=== PATIENT | female | born 1995 | race Caucasian/White ===

== ENCOUNTER 2021-02-13 08:07 | Inpatient (IN) | payer BC ==
[~2021-02-13] VITALS: Ht 165.1 cm; Wt 107.5 kg
[2021-02-13 08:44] LABS: URINE HCG NEGATIVE (NEG)
[2021-02-13 08:45] LABS: CLARITY,URINE SLIGHTLY CLOUDY (Clear); COLOR,URINE ORANGE (Yellow)
[2021-02-13 09:08] LABS: UA COLLECTION TYPE NON-SPECIFIED
[2021-02-13 09:09] LABS: WBC,URINE 0-4 /HPF (0-4)
[2021-02-13 09:11] LABS: BACTERIA,URINE 1+ /HPF (Neg); CAL OXALATE CRYSTALS 4+ /HPF (NEGATIVE); HYALINE CASTS 0-3 /LPF (NEGATIVE); MUCUS STRANDS MODERATE /LPF (Neg); RBC,URINE NONE SEEN /HPF (0-2); SQUAMOUS EPITHELIAL CELL,UR FEW /LPF (FEW)
[2021-02-13 09:36] LABS: BASOPHILS % (AUTO) 0.3 % (0-1); EOSINOPHILS % (AUTO) 0 % (0-6); LYMPHOCYTES # (AUTO) 0.4 X10'3 (1.1-4.8); MEAN PLATELET VOLUME 8.5 FL (7.4-10.4); MONOCYTES # (AUTO) 0.8 X10'3 (0-0.9); MONOCYTES % (AUTO) 5.7 % (2-12); NEUTROPHILS # (AUTO) 12.4 X10'3 (1.8-7.7); PLATELET COUNT 364 X10'3 (140-440); WHITE BLOOD COUNT 13.7 X10'3 (4.5-11.0)
[2021-02-13 09:58] LABS: ALANINE AMINOTRANSFERASE 484 U/L (12-78); ALBUMIN 3.7 G/DL (3.4-5.0); ALBUMIN/GLOBULIN RATIO 0.8 (1.1-1.5); ALKALINE PHOSPHATASE 224 IU/L (46-116); ANION GAP 13 (8-16); ASPARTATE AMINO TRANSFERASE 175 U/L (10-37); BILIRUBIN,TOTAL 2.3 MG/DL (0.1-1.0); BLOOD UREA NITROGEN 7 MG/DL (7-18); BUN/CREATININE RATIO 6.6 (6.6-38.0); CHLORIDE 104 MMOL/L (99-107); CREATININE 1.06 MG/DL (0.40-0.90); GLUCOSE 164 MG/DL (70-104); POTASSIUM 4.4 MMOL/L (3.5-5.1); SODIUM 140 MMOL/L (135-145); TOTAL CARBON DIOXIDE 23.4 MMOL/L (24-32); TOTAL PROTEIN 8.1 G/DL (6.4-8.2); eGFR 63 ML/MIN
[2021-02-13] MEDS ORDERED: ketorolac trometh. 30mg/ml inj. IV ONE (10:00)
[2021-02-13] MEDS ORDERED: ondansetron/PF 4mg/2ml inj IV ONE (10:00)
[2021-02-13] MEDS ORDERED: normal saline 1000ML IV soln IVB ONE (10:00)
[2021-02-13 10:04] LABS: HEMATOCRIT 38.4 % (35.0-45.0); HEMOGLOBIN 12.7 g/dl (12.0-16.0); MEAN CORPUSCULAR VOLUME 77.9 FL (78-98); RED BLOOD COUNT 4.94 X10'6 (4.20-5.60)
[2021-02-13 10:05] LABS: MEAN CORPUSCULAR HEMOGLOBIN 25.6 PG (27.0-31.0); MEAN CORPUSCULAR HGB CONC 32.9 g/dL (33.0-36.5); RED CELL DISTRIBUTION WIDTH 15.5 % (11.5-14.5)
[2021-02-13] MEDS: morphine 4 MG/ML inj SYRINge IV PRN ×3 (10:13→22:05)
[2021-02-13] MEDS ORDERED: NO HOME MEDS (13:42)
[2021-02-13] MEDS ORDERED: potassium Cl 20 mEq SR tablet PO PRN ×2 (13:55)
[2021-02-13] MEDS ORDERED: potassium Cl 40MEQ/1/2NS 520ml 520 ML IV PRN ×2 (13:55)
[2021-02-13] MEDS ORDERED: magnesium 2GM in 50ml NS 50 ML IV PRN (13:55)
[2021-02-13] MEDS ORDERED: magnesium Cl slow-release 64mg tablet PO PRN (13:55)
[2021-02-13] MEDS ORDERED: acetaminophen 325mg tablet PO PRN (13:55)
[2021-02-13] MEDS ORDERED: magnesium 4gm in 100ml NS 100 ML IV PRN (13:55)
[2021-02-13 14:00] LABS: LIPASE > 30000 U/L (73-393)
[2021-02-13] MEDS: normal saline 1000ml 1,000 ML IV SCH ×2 (14:55→23:55)
[2021-02-13] MEDS: ondansetron/PF 4mg/2ml inj IV PRN (16:37)
[2021-02-13] MEDS: K and/or MAG REPLACEMENT MC SCH (20:00)
--- NOTE | 2021-02-13 21:50 | NUR ---
Patient ambulatory to bathroom with steady gait.
--- NOTE | 2021-02-13 23:43 | NUR ---
Assumed care of patient- report recieved from Tiffany VERGARA. Patient resting in stretcher at this time. Even and unlabored respirations- appears to be asleep.
--- NOTE | 2021-02-14 02:00 | NUR ---
Patient was offered a hospital bed but she refused at the time stating since it does not fit in the room she would rather stay on the stretcher in the room with a door than the hospital bed in the room with curtains.
[2021-02-14 04:31] LABS: BASOPHILS % (AUTO) 0.4 % (0-1); EOSINOPHILS % (AUTO) 0.1 % (0-6); HEMATOCRIT 34.6 % (35.0-45.0); HEMOGLOBIN 10.8 g/dl (12.0-16.0); LYMPHOCYTES # (AUTO) 0.9 X10'3 (1.1-4.8); LYMPHOCYTES % (AUTO) 8.2 % (21-51); MEAN CORPUSCULAR HEMOGLOBIN 24.7 PG (27.0-31.0); MEAN CORPUSCULAR HGB CONC 31.1 g/dL (33.0-36.5); MEAN CORPUSCULAR VOLUME 79.2 FL (78-98); MEAN PLATELET VOLUME 8.2 FL (7.4-10.4); MONOCYTES # (AUTO) 1.4 X10'3 (0-0.9); MONOCYTES % (AUTO) 12.7 % (2-12); NEUTROPHILS # (AUTO) 8.8 X10'3 (1.8-7.7); NEUTROPHILS % (AUTO) 78.6 % (42-75); PLATELET COUNT 264 X10'3 (140-440); RED BLOOD COUNT 4.36 X10'6 (4.20-5.60); WHITE BLOOD COUNT 11.1 X10'3 (4.5-11.0)
[2021-02-14 04:32] LABS: ANION GAP 13 (8-16); BLOOD UREA NITROGEN 11 MG/DL (7-18); BUN/CREATININE RATIO 12.6 (6.6-38.0); CALCIUM 8.2 MG/DL (8.5-10.1); CHLORIDE 107 MMOL/L (99-107); CREATININE 0.87 MG/DL (0.40-0.90); GLUCOSE 98 MG/DL (70-104); POTASSIUM 3.7 MMOL/L (3.5-5.1); SODIUM 142 MMOL/L (135-145); eGFR 79 ML/MIN
--- NOTE | 2021-02-14 05:56 | NUR ---
Patient resting in stretcher- even and unlabored respirations. States does not need any pain medication at this time- pain remains tolerable.
--- NOTE | 2021-02-14 06:50 | NUR ---
Patient in room [facility] 354A. I have received report from URSULA MCCORMICK FROM ER and had the opportunity to ask questions and assume patient care.
[2021-02-14 07:08] VITALS: BP 144/92
[2021-02-14] MEDS: K and/or MAG REPLACEMENT MC SCH ×2 (08:00→20:00)
[2021-02-14] MEDS: normal saline 1000ml 1,000 ML IV SCH ×2 (09:55→16:52)
[2021-02-14 11:00] VITALS: BP 155/95
[2021-02-14] MEDS: morphine 2 MG/ML inj. syringe IV PRN ×2 (11:45→19:49)
[2021-02-14 13:22] LABS: ALANINE AMINOTRANSFERASE 448 U/L (12-78); ALBUMIN/GLOBULIN RATIO 0.8 (1.1-1.5); ALKALINE PHOSPHATASE 168 IU/L (46-116); ASPARTATE AMINO TRANSFERASE 163 U/L (10-37); BILIRUBIN,DIRECT 0.3 MG/DL (0-0.3); BILIRUBIN,TOTAL 0.7 MG/DL (0.1-1.0); TOTAL PROTEIN 6.7 G/DL (6.4-8.2)
[2021-02-14 13:49] LABS: LIPASE 4861 U/L (73-393)
--- NOTE | 2021-02-14 18:24 | NUR ---
Problems reprioritized. Patient report given, questions answered & plan of care reviewed with URSULA ASHLEY.
--- NOTE | 2021-02-14 18:37 | NUR ---
Patient in room [facility] 354. I have received report from URSLUA TRIPP and had the opportunity to ask questions and assume patient care. Addendum: 02/14/21 at 1838 by Fiona Alvarado RN Amended: Links added.
[2021-02-14 19:35] VITALS: BP 157/84
[2021-02-14] MEDS: ondansetron/PF 4mg/2ml inj IV PRN (22:08)
[2021-02-15] VITALS: BP 137/84
[2021-02-15] MEDS: normal saline 1000ml 1,000 ML IV SCH ×3 (01:38→22:29)
[2021-02-15 05:59] LABS: BASOPHILS # (AUTO) 0.1 X10'3 (0-0.2); BASOPHILS % (AUTO) 0.7 % (0-1); EOSINOPHILS # (AUTO) 0.1 X10'3 (0-0.9); EOSINOPHILS % (AUTO) 1.2 % (0-6); HEMATOCRIT 32.9 % (35.0-45.0); HEMOGLOBIN 10.3 g/dl (12.0-16.0); MEAN CORPUSCULAR HEMOGLOBIN 24.7 PG (27.0-31.0); MEAN CORPUSCULAR HGB CONC 31.2 g/dL (33.0-36.5); MEAN CORPUSCULAR VOLUME 79.1 FL (78-98); MEAN PLATELET VOLUME 8.7 FL (7.4-10.4); MONOCYTES # (AUTO) 1.3 X10'3 (0-0.9); MONOCYTES % (AUTO) 12.1 % (2-12); NEUTROPHILS # (AUTO) 8.4 X10'3 (1.8-7.7); PLATELET COUNT 231 X10'3 (140-440); RED BLOOD COUNT 4.16 X10'6 (4.20-5.60); RED CELL DISTRIBUTION WIDTH 15.7 % (11.5-14.5); WHITE BLOOD COUNT 10.9 X10'3 (4.5-11.0)
--- NOTE | 2021-02-15 06:19 | NUR ---
Problems reprioritized. Patient report given, questions answered & plan of care reviewed with URSULA TRIPP. Addendum: 02/15/21 at 0620 by Fiona Alvarado RN Amended: Links added.
[2021-02-15 06:24] LABS: ALANINE AMINOTRANSFERASE 398 U/L (12-78); ALBUMIN 2.8 G/DL (3.4-5.0); ALBUMIN/GLOBULIN RATIO 0.8 (1.1-1.5); ALKALINE PHOSPHATASE 152 IU/L (46-116); ANION GAP 11 (8-16); ASPARTATE AMINO TRANSFERASE 112 U/L (10-37); BILIRUBIN,DIRECT 0.4 MG/DL (0-0.3); BILIRUBIN,TOTAL 0.9 MG/DL (0.1-1.0); BLOOD UREA NITROGEN 6 MG/DL (7-18); BUN/CREATININE RATIO 8.6 (6.6-38.0); CALCIUM 8.1 MG/DL (8.5-10.1); CHLORIDE 105 MMOL/L (99-107); GLUCOSE 84 MG/DL (70-104); LIPASE 503 U/L (73-393); MAGNESIUM 1.9 MG/DL (1.5-2.4); POTASSIUM 3.8 MMOL/L (3.5-5.1); SODIUM 138 MMOL/L (135-145); TOTAL CARBON DIOXIDE 21.6 MMOL/L (24-32); TOTAL PROTEIN 6.4 G/DL (6.4-8.2); eGFR > 90 ML/MIN
--- NOTE | 2021-02-15 06:35 | NUR ---
Patient in room [facility] 354A. I have received report from URSULA ASHLEY and had the opportunity to ask questions and assume patient care.
[2021-02-15 08:00] VITALS: BP 143/81
[2021-02-15] MEDS: K and/or MAG REPLACEMENT MC SCH ×2 (08:00→20:00)
[2021-02-15 11:00] VITALS: BP 152/93
--- NOTE | 2021-02-15 18:33 | NUR ---
Patient in room [facility] 354. I have received report from URSULA TRIPP and had the opportunity to ask questions and assume patient care. Addendum: 02/15/21 at 1833 by Fiona Alvarado RN Amended: Links added.
--- NOTE | 2021-02-15 19:29 | NUR ---
Problems reprioritized. Patient report given, questions answered & plan of care reviewed with URSULA ASHLEY.
[2021-02-15] MEDS ORDERED: calcium carbonate 500mg chew tablet PO PRN (19:55)
[2021-02-15 20:00] VITALS: BP 137/81
--- NOTE | 2021-02-15 22:15 | NUR ---
PT C/O HEARTBURN MEDICATED WITH TUMS ON ARRIVAL FROM THE PHARMACY.
--- NOTE | 2021-02-15 22:35 | NUR ---
PREOP TEACHING DONE WITH PT AND GIVEN AN IS UNIT TO USE WENT UP TO 1999 WHEN DEMONSTRATING IT BACK TO THE NURSE. SURG PREP WIPES AT THE BEDSIDE SHOULD SHE GO TO OR TODAY AFTER MRCP.
--- NOTE | 2021-02-15 22:55 | NUR ---
COVID TEST PERFORMED ON PT FOR PREOP.
[2021-02-16] VITALS (21 sets, daily range): BP systolic 126–165; BP diastolic 58–98
--- NOTE | 2021-02-16 | NUR ---
PT NPO NOW.
--- NOTE | 2021-02-16 02:09 | NUR ---
RESTING WITHOUT CHANGES.
--- NOTE | 2021-02-16 04:20 | NUR ---
RESTING APPEARS COMFORTABLE
[2021-02-16 05:58] LABS: BASOPHILS # (AUTO) 0.1 X10'3 (0-0.2); BASOPHILS % (AUTO) 0.6 % (0-1); EOSINOPHILS # (AUTO) 0.1 X10'3 (0-0.9); EOSINOPHILS % (AUTO) 1.4 % (0-6); HEMATOCRIT 31.4 % (35.0-45.0); LYMPHOCYTES # (AUTO) 1.1 X10'3 (1.1-4.8); LYMPHOCYTES % (AUTO) 11.4 % (21-51); MEAN CORPUSCULAR HEMOGLOBIN 25.2 PG (27.0-31.0); MEAN CORPUSCULAR VOLUME 78.8 FL (78-98); MEAN PLATELET VOLUME 8.7 FL (7.4-10.4); MONOCYTES # (AUTO) 1.1 X10'3 (0-0.9); MONOCYTES % (AUTO) 11.6 % (2-12); NEUTROPHILS # (AUTO) 7.4 X10'3 (1.8-7.7); PLATELET COUNT 220 X10'3 (140-440); RED BLOOD COUNT 3.99 X10'6 (4.20-5.60); RED CELL DISTRIBUTION WIDTH 15.5 % (11.5-14.5); WHITE BLOOD COUNT 9.8 X10'3 (4.5-11.0)
--- NOTE | 2021-02-16 06:09 | NUR ---
Problems reprioritized. Patient report given, questions answered & plan of care reviewed with URSULA TRIPP. Addendum: 02/16/21 at 0609 by Fiona Alvarado RN Amended: Links added.
[2021-02-16 06:17] LABS: ALANINE AMINOTRANSFERASE 293 U/L (12-78); ALBUMIN 2.6 G/DL (3.4-5.0); ALBUMIN/GLOBULIN RATIO 0.7 (1.1-1.5); ALKALINE PHOSPHATASE 116 IU/L (46-116); ANION GAP 12 (8-16); ASPARTATE AMINO TRANSFERASE 64 U/L (10-37); BILIRUBIN,DIRECT 0.3 MG/DL (0-0.3); BILIRUBIN,TOTAL 0.7 MG/DL (0.1-1.0); BLOOD UREA NITROGEN 5 MG/DL (7-18); BUN/CREATININE RATIO 7.8 (6.6-38.0); CALCIUM 8.3 MG/DL (8.5-10.1); CHLORIDE 102 MMOL/L (99-107); CREATININE 0.64 MG/DL (0.40-0.90); GLUCOSE 85 MG/DL (70-104); LIPASE 110 U/L (73-393); MAGNESIUM 1.6 MG/DL (1.5-2.4); POTASSIUM 3.4 MMOL/L (3.5-5.1); SODIUM 138 MMOL/L (135-145); TOTAL CARBON DIOXIDE 24.1 MMOL/L (24-32); TOTAL PROTEIN 6.3 G/DL (6.4-8.2); eGFR > 90 ML/MIN
--- NOTE | 2021-02-16 06:45 | NUR ---
Patient in room [facility] 354A. I have received report from URSULA ASHLEY and had the opportunity to ask questions and assume patient care.
[2021-02-16] MEDS: K and/or MAG REPLACEMENT MC SCH (08:00)
[2021-02-16] MEDS: normal saline 1000ml 1,000 ML IV SCH ×3 (09:00→22:38)
[2021-02-16 09:08] LABS: CHOLESTEROL 117 MG/DL (0-200); HDL CHOLESTEROL 29 MG/DL (35-60); LDL CHOLESTEROL 64 MG/DL (50-100); TRIGLYCERIDES 80 MG/DL (20-135)
[2021-02-16] MEDS ORDERED: potassium Cl 40MEQ/1/2NS 520ml 520 ML IV PRN (14:20)
[2021-02-16] MEDS ORDERED: potassium Cl 20 mEq SR tablet PO PRN ×2 (14:20)
[2021-02-16] MEDS ORDERED: magnesium 4gm in 100ml NS 100 ML IV PRN (14:20)
[2021-02-16] MEDS ORDERED: BUPIVAcaine 0.5% inj/PF 30 ML ONE (18:43)
--- NOTE | 2021-02-16 18:49 | NUR ---
Problems reprioritized. Patient report given, questions answered & plan of care reviewed with URSULA MONROE.
[2021-02-16] MEDS ORDERED: sevoflurane 250ml liquid IH ONE (19:08)
[2021-02-16] MEDS ORDERED: midazolam 1 mg/ML 2ml injection ONE (19:10)
[2021-02-16] MEDS ORDERED: fentaNYL /PF 50mcg/ml 5ml ampule ONE (19:11)
[2021-02-16] MEDS ORDERED: rocuronium 10mg/ml inj IV ONE (19:12)
[2021-02-16] MEDS ORDERED: propofol inj 20 ML IV ONE (19:12)
[2021-02-16] MEDS ORDERED: ceFOXitin 1000 MG inj ONE ×2 (19:32)
[2021-02-16] MEDS ORDERED: ondansetron/PF 4mg/2ml inj ONE (19:57)
[2021-02-16] MEDS ORDERED: dexamethasone sod phosphate 4mg/ml inj. ONE (19:57)
[2021-02-16] MEDS ORDERED: neostigmine methylsulfate 1 MG/ML 10ml vial ONE (19:57)
[2021-02-16] MEDS ORDERED: glycopyrrolate 0.2mg/ml inj ONE (19:58)
--- NOTE | 2021-02-16 20:20 | NUR ---
Received from OR via BED , accompanied by Anesthesiologist DR. ZAPATA and report given by Anesthesiologist. PATIENT WAKING UP, NO S/S OF PAIN, V/S WNL, CSM INTACT, SCD ON, PIV TO RUE-LR RUNNING AT 100ML/HR, LAP SITES X3 CDI.
[2021-02-16] MEDS ORDERED: ringers solution, lacted 1,000 ML IV SCH (20:30)
[2021-02-16] MEDS ORDERED: morphine 4 MG/ML inj SYRINge IV PRN (20:30)
[2021-02-16] MEDS ORDERED: ondansetron/PF 4mg/2ml inj IV PRN (20:30)
[2021-02-16] MEDS ORDERED: meperidine/PF 25mg/ml syringe IV PRN ×2 (20:30)
[2021-02-16] MEDS ORDERED: morphine 2 MG/ML inj. syringe IV PRN (20:30)
[2021-02-16] MEDS ORDERED: proCHLORperazine 10 MG/2 ml inj IV PRN (20:30)
[2021-02-16] MEDS: meperidine/PF 25mg/ml syringe IV PRN ×2 (20:41→21:20)
--- NOTE | 2021-02-16 21:50 | NUR ---
PATIENT HAS MET ALL CRITERIA FOR TRANSFER TO THE SURGICAL FLOOR. VSS. DRESSINGS OVER LAP SITES X 3-INTACT, 22G PIV TO RIGHT WRIST-LR RUNNING AT 100ML/HR, PAIN 3/10-TOLERABLE, DENIES N/V, REPORT CALLED TO FER VERGARA-ALL QUESTIONS ANSWERED, TAKEN VIA BED TO ROOM 354A-MOM IN ROOM, BED LOW, CALL LIGHT PRESENT AND 2 RAILS UP. RN PRESENT TO ACCEPT CARE OF PATIENT- ALL QUESTIONS ANSWERED TO ACCEPTING RN.
[2021-02-16] MEDS ORDERED: HYDROcodone/acetaminophen 10/325mg tab PO PRN (22:20)
[2021-02-16] MEDS: morphine 2 MG/ML inj. syringe IV PRN (22:37)
[2021-02-17] MEDS: K and/or MAG REPLACEMENT MC SCH ×2 (01:34→08:00)
[2021-02-17] MEDS: morphine 2 MG/ML inj. syringe IV PRN (02:47)
--- NOTE | 2021-02-17 06:45 | NUR ---
Problems reprioritized. Patient report given, questions answered & plan of care reviewed with SVETA. Addendum: 02/17/21 at 0646 by Lucho Mendosa RN Amended: Links added.
[2021-02-17 07:15] LABS: BASOPHILS % (AUTO) 0.2 % (0-1); EOSINOPHILS % (AUTO) 0 % (0-6); HEMATOCRIT 33.1 % (35.0-45.0); HEMOGLOBIN 10.6 g/dl (12.0-16.0); LYMPHOCYTES # (AUTO) 0.4 X10'3 (1.1-4.8); LYMPHOCYTES % (AUTO) 4.1 % (21-51); MEAN CORPUSCULAR HEMOGLOBIN 24.7 PG (27.0-31.0); MEAN CORPUSCULAR HGB CONC 32.1 g/dL (33.0-36.5); MEAN CORPUSCULAR VOLUME 77.1 FL (78-98); MEAN PLATELET VOLUME 8.4 FL (7.4-10.4); MONOCYTES # (AUTO) 0.6 X10'3 (0-0.9); MONOCYTES % (AUTO) 5.5 % (2-12); NEUTROPHILS # (AUTO) 9.2 X10'3 (1.8-7.7); NEUTROPHILS % (AUTO) 90.2 % (42-75); PLATELET COUNT 260 X10'3 (140-440); RED BLOOD COUNT 4.29 X10'6 (4.20-5.60); RED CELL DISTRIBUTION WIDTH 15.5 % (11.5-14.5); WHITE BLOOD COUNT 10.2 X10'3 (4.5-11.0)
[2021-02-17 07:54] LABS: ALANINE AMINOTRANSFERASE 231 U/L (12-78); ALBUMIN 2.7 G/DL (3.4-5.0); ALBUMIN/GLOBULIN RATIO 0.6 (1.1-1.5); ALKALINE PHOSPHATASE 121 IU/L (46-116); ANION GAP 14 (8-16); ASPARTATE AMINO TRANSFERASE 50 U/L (10-37); BILIRUBIN,DIRECT 0.2 MG/DL (0-0.3); BILIRUBIN,TOTAL 0.5 MG/DL (0.1-1.0); BLOOD UREA NITROGEN 5 MG/DL (7-18); BUN/CREATININE RATIO 7.9 (6.6-38.0); CALCIUM 8.7 MG/DL (8.5-10.1); CHLORIDE 105 MMOL/L (99-107); CREATININE 0.63 MG/DL (0.40-0.90); GLUCOSE 106 MG/DL (70-104); LIPASE < 50 U/L (73-393); MAGNESIUM 1.9 MG/DL (1.5-2.4); POTASSIUM 4.3 MMOL/L (3.5-5.1); SODIUM 140 MMOL/L (135-145); TOTAL CARBON DIOXIDE 21.2 MMOL/L (24-32); eGFR > 90 ML/MIN
[2021-02-17] MEDS: ondansetron/PF 4mg/2ml inj IV PRN (08:46)
[2021-02-17 09:18] VITALS: BP 152/84
[2021-02-17] MEDS ORDERED: ONDA4TAB12 PO (10:53)
[2021-02-17] MEDS ORDERED: HYDR-3972 PO (10:53)
[2021-02-17 11:21] VITALS: BP 126/75
--- NOTE | 2021-02-17 14:00 | NUR ---
Patient discharged home. Patient educated on new medications and regime. Patient left with all belongings at that time of discharge. Patient expressed verbal understanding of discharge teaching at this time. Patient is aware of the follow up and medications . Patient left in private vehicle.
== END 2021-02-17 14:05 | disposition home or self-care (01) | DRG 418 ==
LOC: ER 08:09 → PACU 13:54 → ED HOLD 02-14 03:37 → SUR 3N 02-14 07:00 → PACU 02-16 20:20 → SUR 3N 02-16 21:30
PROVIDERS: ADMIT Internal Medicine; ATTEND Surgery
PROC: 0FT44ZZ Resection of Gallbladder, Percutaneous Endoscopic Approach (ICD-10-PCS; principal; 2021-02-16 19:08)
DX: K85.10 Biliary acute pancreatitis without necrosis or infection (principal); K80.00 Calculus of gallbladder with acute cholecystitis without obstruction; E66.01 Morbid (severe) obesity due to excess calories; R74.01 Elevation of levels of liver transaminase levels; Z20.822 Contact with and (suspected) exposure to COVID-19; Z68.39 Body mass index [BMI] 39.0-39.9, adult; Z90.49 Acquired absence of other specified parts of digestive tract
CPT/HCPCS: 96361; 96374; 96375; 99285; Z7506; Z7508; 36415; 74176; 74181; 76700; 80048; 80053; 80061; 80076; 81001; 81025; 82948; 83690; 83735; 85025; 87081; 87088; 87635; A4215; A4618; A7000; G0378; J0694; J1100; J1885; J2175; J2250; J2270; J2405; J2704; J2710; J3010; J3490; J7030